=== PATIENT | male | born 1975 | race Hispanic/Latino ===

== ENCOUNTER 2018-07-11 00:34 | Emergency (ER) | payer OTHER ==
[2018-07-11] MEDS ORDERED: ACETAMINOPHEN EXTRA STRENGTH 500 MG TABLET ONE (00:57)
== END 2018-07-11 01:38 | disposition home or self-care (01) ==
LOC: EDH 00:34
DX: B34.9 Viral infection, unspecified (principal)

== ENCOUNTER 2019-03-15 09:47 | Emergency (ER) | payer SELFPAY ==
[2019-03-15] MEDS ORDERED: IBUPROFEN 600 MG TABLET ONE (10:02)
== END 2019-03-15 11:05 | disposition home or self-care (01) ==
LOC: EDH 09:47
DX: S92.424A Nondisplaced fracture of distal phalanx of right great toe, initial encounter for closed fracture (principal); S92.414A Nondisplaced fracture of proximal phalanx of right great toe, initial encounter for closed fracture; W20.8XXA Other cause of strike by thrown, projected or falling object, initial encounter; Y93.9 Activity, unspecified; Y92.009 Unspecified place in unspecified non-institutional (private) residence as the place of occurrence of the external cause; Y99.8 Other external cause status
CPT/HCPCS: 73630; 73660